=== PATIENT | male | born 1955 | race Caucasian/White ===

== ENCOUNTER → 2017-06-22 | Outpatient (CLI) | payer BC ==
--- NOTE | 2017-06-23 11:24 | PCVCIMAG ---
APPROVED REPORT Indications Bruit Stenosis Doppler Spectral Velocity Analysis PSV / EDVPSV / EDV ECA (R) 303 / 22 cm/sECA (L) 172 / 0 cm/s dICA (R) 79 / 21 cm/sdICA (L) 88 / 27 cm/s Tanner (R) 159 / 33 cm/smICA (L) 77 / 21 cm/s pICA (R) 206 / 44 cm/spICA (L) 96 / 25 cm/s Bulb (R) 89 / 16 cm/sBulb (L) 96 / 15 cm/s dCCA (R) 81 / 16 cm/sdCCA (L) 90 / 15 cm/s mCCA (R) 77 / 14 cm/smCCA (L) 114 / 19 cm/s Vert (R) 41 / 15 cm/sVert (L) 48 / 8 cm/s ICA/CCA 2.54ICA/CCA 1.07 Real Time B-Mode Imaging Vert. (R)AntegradeVert. (L)Antegrade Findings The right carotid bulb has moderately severe calcified plaque. The right proximal internal carotid artery shows 60-70% stenosis. The right common carotid artery shows no significant stenosis. The right external carotid artery shows >90% stenosis. The left carotid bulb has moderate calcified plaque. The left proximal internal carotid artery shows <40% stenosis. The left common carotid artery shows no significant stenosis. The left external carotid artery shows >50% stenosis. Conclusion 1. Right internal carotid artery stenosis (60-70%) 2. Left internal carotid artery stenosis (<40%) 3. Antegrade vertebral flow
--- NOTE | 2017-06-23 21:08 | PCVCIMAG ---
EXAM: RIGHT LOWER EXTREMITY ARTERIAL DUPLEX INDICATION: Peripheral Arterial Disease. Leg pain. FINDINGS: Right Leg: Satisfactory arterial waveforms in the common femoral and profunda femoral artery and in the superficial femoral artery and popliteal artery. Since October 2016 80% stenosis in the proximal posterior tibial artery within prior stent has developed. The anterior tibial artery remains patent. The peroneal artery is occluded. IMPRESSION: Interval development of 80% stenosis proximal right posterior tibial artery within prior stent. Peroneal artery remains occluded. LOC:OFFICE
== END | disposition home or self-care (01) ==
LOC: PCVCIMAG 13:21
PROVIDERS: ATTEND Nuclear Medicine Nuclear Cardiology
DX: I65.23 Occlusion and stenosis of bilateral carotid arteries (principal); I70.201 Unspecified atherosclerosis of native arteries of extremities, right leg; I77.1 Stricture of artery; I25.10 Atherosclerotic heart disease of native coronary artery without angina pectoris; E11.9 Type 2 diabetes mellitus without complications; Z79.4 Long term (current) use of insulin; Z95.828 Presence of other vascular implants and grafts
CPT/HCPCS: 93880; 93926

== ENCOUNTER → 2017-07-13 | Outpatient (CLI) | payer BC ==
[~2017-07-13] MED LIST: DIAZEPAM 10 MG TABLET. ONE; EPINEPHrine 1 MG/ML VIAL ONE; HEPARIN SODIUM 5,000 UNIT/ML VIAL for PCVC. ONE; IODIXANOL 270 MG/ML 100 ML VIAL. ONE; IV NORMAL SALINE 1000ML BAG 1,000 ML ONE; IV NORMAL SALINE 500ML BAG 500 ML ONE; LIDOCAINE 1% Multi-Dose 20 ML VIAL. ONE; MIDAZOLAM HCL/PF 2 MG/2 ML VIAL. ONE; PROTAMINE 50 MG/5 ML VIAL. IV ONE; VANCOMYCIN 1GM IVPB FOR OMNI 250 ML ONE; fentaNYL PF VIAL 100 MCG/2 ML VIAL ONE; hydrALAZINE 20 MG/ML VIAL. ONE
--- NOTE | 2017-07-13 15:45 | PCVCIMAG ---
APPROVED REPORT Study performed: 07/13/2017 12:27:23 EXAM: Comprehensive 2D, Doppler, and color-flow Echocardiogram Patient Location: Echo lab Status: routine BSA: 2.41 HR: 91 bpmBP: 114/71 mmHg Rhythm: RBBB Other Information Study Quality: Fair Technically limited study due to body habitus. Risk Factors: Cardiac Risk Factors: HTN, DM Indications CAD Cardiomyopathy Ischemic Cardiomyopathy, CABG 2D Dimensions LVEF(%): 26.33 (>50%) IVSd: 9.83 (7-11mm)LVOT Diam: 23.02 (18-24mm) LVDd: 58.15 mm PWd: 10.83 (7-11mm) LVDs: 50.93 (25-40mm) Left Atrium: 48.24 (27-40mm) Aortic Root: 35.86 mm LV Single Plane 4CH: 47.70 % LV Single Plane 2CH: 33.42 %Shaikh's LVEF: 40.56 % Volumes Left Atrial Volume (Systole) Single Plane 4CH: 126.66 mLSingle Plane 2CH: 106.63 mL LA ESV Index: 53.00 mL/m2 Aortic Valve AoV Peak Narinder.: 2.65 m/s AO Peak Gr.: 28.13 mmHgLVOT Max P.35 mmHg AO Mean Gr.: 15.33 mmHgLVOT Mean P.17 mmHg AO V2 Mean: 1.84 m/sLVOT Max V: 0.96 m/s AO V2 VTI: 62.58 cmLVOT Mean V: 0.70 m/s TRACY (VTI): 1.56 [id number] VTI: 23.40 cm TRACY Vmax: 1.50 cm2 SV (LVOT): 97.35 mL Mitral Valve E/A Ratio: 1.2 MV Decel. Time: 130.64 ms MV E Max Narinder.: 1.33 m/s MV A Narinder.: 1.12 m/s IVRT: 89.97 ms Pulmonary Valve PV Peak Narinder.: 0.94 m/sPV Peak Gr.: 3.53 mmHg Pulmonary Vein P Vein S: 0.55 m/sP Vein A: 0.34 m/s P Vein D: 0.77 m/sP Vein A Dur.: 131.5 msec P Vein S/D Ratio: 0.71 Tricuspid Valve TR Peak Narinder.: 2.53 m/s TR Peak Gr.: 25.58 mmHg Left Ventricle The left ventricle is normal size. There is normal LV segmental wall motion. There is normal left ventricular wall thickness. Left ventricular systolic function is mild to moderately decreased. LVEF is 40-45%. Grade II - pseudonormal filling dynamics. Right Ventricle The right ventricle is normal size. The right ventricular systolic function is normal. Atria Left atrium is moderately-severely dilated. Right atrium is mildly dilated. Aortic Valve The aortic valve is moderately calcified. The aortic valve is trileaflet. No aortic regurgitation is present. There is mild valvular aortic stenosis. Calculated aortic valve area is 1.4 cm2 with maximum pressure gradient of 28 mmHg and mean pressure gradient of 15 mmHg. Mitral Valve Moderate mitral annular calcification with moderately sclerotic leaflet appearance. Trace mitral regurgitation. No evidence of mitral valve stenosis. Tricuspid Valve The tricuspid valve is normal in structure. Mild tricuspid regurgitation with PAP of 33 mmHg. Pulmonic Valve The pulmonary valve is normal in structure. There is no pulmonic valvular regurgitation. Great Vessels The aortic root is normal in size. IVC is normal in size and collapses with >50% inspiration Pericardium There is no pericardial effusion. <Conclusion> The left ventricle is normal size. Left ventricular systolic function is mild to moderately decreased. Grade II - pseudonormal filling dynamics. Left atrium is moderately-severely dilated. There is mild valvular aortic stenosis. Trace mitral regurgitation. Mild tricuspid regurgitation with PAP of 33 mmHg.
--- NOTE | 2017-07-13 17:33 | PCVCINTER ---
EXAM: 1. AORTOGRAM AND RIGHT LOWER EXTREMITY RUNOFF ANGIOGRAM 2. BILATERAL RENAL ANGIOGRAPHY 3. RIGHT TIBIOPERONEAL TRUNK/POSTERIOR TIBIAL ARTERY ATHERECTOMY. 4. SECONDARY THROMBECTOMY RIGHT TIBIOPERONEAL TRUNK/POSTERIOR TIBIAL ARTERY. INDICATION: Peripheral arterial disease. Nonhealing ulcer right lower extremity. Hypertension. Renal atherosclerosis. PROCEDURE: Procedure and risks of angiography intervention is appropriate including limb loss stroke and were discussed with the patient's family and consent obtained. The patient's left groin was prepped abnormal sterile fashion. IV conscious sedation was used to procedure with appropriate monitoring from 8:30 through 10:00 AM. Ultrasound was used to interrogate the left groin and showed the left common femoral artery to be patent. A permanent spot film was obtained. Under ultrasound guidance access into the left common femoral artery was obtained and a 5 [place] sheath was placed. Through this a 5 [place] flush catheter was placed into the abdominal aorta at the level of the renal arteries and AP aortogram was performed. Catheter was positioned at the aortic bifurcation and both oblique views of the pelvis were obtained. Catheter was exchanged for a visceral catheter was placed into the right renal arteries and right renal angiograms obtained. Catheter was placed into the the left renal arteries and left renal angiograms were obtained. Catheter was advanced to the level of the right external iliac artery and right leg runoff angiography was obtained. Patient was given 4500 units of heparin. A 6 [place] crossover sheath was placed via the left groin to the level of the right common femoral artery. Atherectomy of the right tibioperoneal trunk/posterior tibial artery was performed with 0.9 mm [employer] laser atherectomy catheter in the standard fashion. Following atherectomy small areas of thrombus were observed and because of this secondary thrombectomy throughout the right tibioperoneal trunk/posterior tibial artery was carried out with mechanical suction thrombectomy catheter in the standard fashion. Minimal debris was removed. Following this angioplasty of the right tibioperoneal trunk/posterior tibial artery was carried out with a 3.0 x 40 mm sleek [employer] RN catheter. Follow-up angiogram was performed. Catheters and wires removed. Sheath was removed and hemostasis obtained using the FISH device. No immediate complications. FINDINGS: Aortogram: There is one right and one left renal artery. The infrarenal abdominal aorta is normal in caliber. Pelvis: The right and left common and external iliac arteries show good patency as do both internal iliac arteries. The right and left common femoral and profunda femoral arteries are patent. Right renal artery: Minimal plaque proximal vessel does not cause significant stenosis. Left renal artery: Minimal plaque proximal vessel does not cause significant stenosis. Right leg: Mild scattered plaque in the superficial femoral artery and popliteal artery without flow-limiting stenosis. Mild stenosis lower popliteal artery is noted. The anterior tibial artery show scattered plaque but maintaining satisfactory patency to runoff into a small dorsalis pedis. The peroneal artery shows complete occlusion throughout. Moderate stenosis of the right tibioperoneal trunk and 80% stenosis just beyond the origin of the posterior tibial artery. Right tibioperoneal trunk/posterior tibial artery: Following procedure as above satisfactory patency has been restored. IMPRESSION: Significant stenoses right tibioperoneal trunk and proximal posterior tibial artery were treated as above with satisfactory patency restored. Previous sites of intervention in the right anterior tibial artery maintaining satisfactory patency. follow up LOC:[place] [id number]
== END | disposition home or self-care (01) ==
LOC: PCVCINTER 07:37
PROVIDERS: ATTEND Nuclear Medicine Nuclear Cardiology
DX: I25.5 Ischemic cardiomyopathy (principal); I70.211 Atherosclerosis of native arteries of extremities with intermittent claudication, right leg; I10 Essential (primary) hypertension; I25.10 Atherosclerotic heart disease of native coronary artery without angina pectoris; E78.5 Hyperlipidemia, unspecified; E11.51 Type 2 diabetes mellitus with diabetic peripheral angiopathy without gangrene; I25.2 Old myocardial infarction; I70.1 Atherosclerosis of renal artery
CPT/HCPCS: 36252; 37186; 37229; 75710; 76937; 93306; 99152; 99153; C1725; C1751; C1757; C1769; C1894; J0171; J1644; J2250; J3010; J3370; J7030; J7040; Q9966; 75716; J0360

== ENCOUNTER → 2017-11-12 | Outpatient (CLI) | payer BC | END | disposition home or self-care (01) | LOC: PCVCIMAG 13:50 | DX: I65.23 Occlusion and stenosis of bilateral carotid arteries (principal); I73.9 Peripheral vascular disease, unspecified | CPT/HCPCS: 93880; 93926 ==

== ENCOUNTER → 2018-10-18 | Outpatient (CLI) | payer BC ==
--- NOTE | 2018-10-18 14:20 | PCVCIMAG ---
EXAM: BILATERAL CAROTID DUPLEX INDICATION: Carotid Occlusive Disease. FINDINGS: Doppler Measurements (centimeters per second): RIGHT: Peak CCA-84, Peak ECA-402, Diastolic ICA-48, Peak ICA-241, ICA/CCA Ratio-2.9. LEFT: Peak CCA-102, Peak ECA-120, Diastolic ICA-27, Peak ICA-116, ICA/CCA Ratio-1.1. RIGHT CAROTID: The carotid bulb has severe plaque. The proximal internal carotid artery shows 70% stenosis. The common carotid artery shows no significant stenosis. The external carotid artery shows 90% stenosis. LEFT CAROTID: The carotid bulb has moderate plaque. The proximal internal carotid artery shows <40% stenosis. The common carotid artery shows no significant stenosis. The external carotid artery shows no significant stenosis. Antegrade flow in both vertebral arteries. IMPRESSION: 70% stenosis of the right internal carotid artery with severe plaque. <40% stenosis of the left internal carotid artery with moderate plaque. No change since November 2017. LOC:OFFICE
--- NOTE | 2018-10-18 16:47 | PCVCIMAG ---
EXAM: ULTRASOUND OF THE THYROID INDICATION: Thyroid nodules. FINDINGS: The right thyroid lobe measures 2.0 x 2.6 x 5.0 cm. The left thyroid lobe measures 1.8 x 2.0 x 4.7 cm. 0.9 x 1.1 x 1.3 cm solid nodule in the mid right thyroid lobe which contains several small cystic spaces. No additional nodules are seen. Satisfactory echotexture. IMPRESSION: 1.3 cm predominantly solid nodule mid right thyroid lobe. Further evaluation into may be of value if this is a new finding. LOC:OFFICE
--- NOTE | 2018-10-18 16:55 | PCVCIMAG ---
EXAM: RIGHT LOWER EXTREMITY ARTERIAL DUPLEX INDICATION: Peripheral Arterial Disease. Leg pain. FINDINGS: Right Leg: Common femoral and profunda femoral arteries are patent. Superficial femoral artery and popliteal artery are patent. Anterior tibial artery is patent. Peroneal artery is occluded. Tibioperoneal trunk is patent. 90% restenosis at site of prior intervention proximal posterior tibial artery. IMPRESSION: 90% restenosis at site of prior intervention in the proximal right posterior tibial artery. Previous sites of intervention right anterior tibial artery remain patent. LOC:OFFICE
== END | disposition home or self-care (01) ==
LOC: PCVCIMAG 12:54
PROVIDERS: ATTEND Nuclear Medicine Nuclear Cardiology
DX: I65.23 Occlusion and stenosis of bilateral carotid arteries (principal); E04.1 Nontoxic single thyroid nodule; I73.9 Peripheral vascular disease, unspecified; I77.9 Disorder of arteries and arterioles, unspecified
CPT/HCPCS: 76536; 93880; 93926

== ENCOUNTER → 2018-10-30 | Outpatient (CLI) | payer BC ==
[~2018-10-30] MED LIST changes: +ASPIRIN 325 MG TABLET ONE; +CLOPIDOGREL BISULFATE 75 MG TABLET ONE; -EPINEPHrine 1 MG/ML VIAL ONE; +EPTIFIBATIDE BOLUS 2,000 MCG/ML 10ML VIAL. IV ONE; -HEPARIN SODIUM 5,000 UNIT/ML VIAL for PCVC. ONE; +HEPARIN for SUB-Q USE 5,000 UNIT/ML VIAL. SQ ONE; -IV NORMAL SALINE 500ML BAG 500 ML ONE; -LIDOCAINE 1% Multi-Dose 20 ML VIAL. ONE; +LIDOCAINE 1%/EPI 1:100,000 20 ML VIAL. ONE; -PROTAMINE 50 MG/5 ML VIAL. IV ONE; -VANCOMYCIN 1GM IVPB FOR OMNI 250 ML ONE
--- NOTE | 2018-10-30 21:56 | PCVCINTER ---
EXAM: 1. AORTOGRAM AND RIGHT LOWER EXTREMITY RUNOFF ANGIOGRAM 2. BILATERAL RENAL ANGIOGRAPHY 3. RIGHT TIBIOPERONEAL TRUNK/PROXIMAL POSTERIOR TIBIAL ARTERY ATHERECTOMY AND DRUG-ELUTING STENT PLACEMENT. 4. SECONDARY THROMBECTOMY RIGHT TIBIOPERONEAL TRUNK/POSTERIOR TIBIAL ARTERY. INDICATION: Peripheral arterial disease. Leg pain. Previous left leg amputation. Hypertension. Renal atherosclerosis. No prior catheter based angiographic study is available. A full diagnostic angiogram study is performed today and the decision to intervene is based on this diagnostic study. PROCEDURE: Procedure and risks of angiography intervention is appropriate including limb loss stroke and were discussed with the patient's family and consent obtained. The patient's left groin was prepped in the normal sterile fashion. IV conscious sedation was used throughout procedure with appropriate monitoring from 10:00 AM through 11:30 AM. Ultrasound was used to interrogate the left groin and showed the left common femoral artery to be patent. A permanent spot film was obtained. Under ultrasound guidance access into the left common femoral artery was obtained and a 5 Malaysian sheath was placed. Through this a 5 [place] flush catheter was placed into the abdominal aorta at the level of the renal arteries and AP aortogram was performed. Catheter was positioned at the aortic bifurcation and both oblique views of the pelvis were obtained. Catheter was positioned into the left external iliac artery and left leg runoff angiography was performed. Catheter was exchanged for a visceral catheter was placed into the right renal arteries and right renal angiograms obtained. Catheter was placed into the the left renal arteries and left renal angiograms were obtained. Catheter was advanced to the level of the right external iliac artery and right leg runoff angiography was obtained. Patient was given 4500 units of heparin. A 6 Malaysian crossover sheath was placed via the left groin to the level of the right common femoral artery. Atherectomy of the right tibioperoneal trunk/proximal peroneal artery was performed with 0.9 mm [employer] laser atherectomy catheter in the standard fashion. Following atherectomy small areas of thrombus were observed and because of this secondary thrombectomy throughout the right tibioperoneal trunk/posterior tibial artery was carried out with mechanical suction thrombectomy catheter in the standard fashion. Minimal debris was removed. Stent placement across the areas of high-grade stenosis in the right tibioperoneal trunk/proximal posterior tibial artery was carried out with a 3.0 x 33 mm Cordis EluNIR stent with subsequent dilatation to 3.0 mm. Follow-up angiogram was performed. Catheters and wires removed. Sheath was removed and hemostasis obtained using the FISH device. No immediate complications. FINDINGS: Aortogram: There is one right and one left renal artery. Minimal plaque infrarenal abdominal aorta. Pelvis: The right and left common and external iliac arteries are patent. Both internal iliac arteries are patent. The right and left common femoral and profunda femoral arteries are patent. Right renal artery: Minimal plaque proximal vessel does not cause significant stenosis. Left renal artery: Minimal plaque proximal vessel does not cause significant stenosis. Right leg: Scattered plaque superficial femoral artery and popliteal artery without significant stenosis. Previous site of intervention distal popliteal artery maintaining good patency. The peroneal artery is occluded throughout its length and this is unchanged. Moderate stenosis tibioperoneal trunk and high-grade stenosis at the junction of the tibioperoneal trunk/proximal posterior tibial artery. Mid and distal posterior tibial artery maintaining good patency into moderate-sized plantar arteries. Mild stenosis proximal anterior tibial artery with anterior tibial artery being otherwise patent into a moderate-sized dorsalis pedis. Right tibioperoneal trunk/proximal posterior tibial artery: Following procedure as above vessel shows good patency throughout. IMPRESSION: Moderate/severe in-stent restenosis tibioperoneal trunk/proximal posterior tibial artery was treated as above with good patency restored. LOC:OFFICE
== END | disposition home or self-care (01) ==
LOC: PCVCINTER 08:07
PROVIDERS: ATTEND Nuclear Medicine Nuclear Cardiology
DX: I70.291 Other atherosclerosis of native arteries of extremities, right leg (principal); I70.1 Atherosclerosis of renal artery; I70.0 Atherosclerosis of aorta; I10 Essential (primary) hypertension; I25.5 Ischemic cardiomyopathy; I25.10 Atherosclerotic heart disease of native coronary artery without angina pectoris; E78.00 Pure hypercholesterolemia, unspecified; Q21.1 Atrial septal defect; Z95.1 Presence of aortocoronary bypass graft; Z89.612 Acquired absence of left leg above knee; Z82.49 Family history of ischemic heart disease and other diseases of the circulatory system; F17.210 Nicotine dependence, cigarettes, uncomplicated; Z79.899 Other long term (current) drug therapy; E11.9 Type 2 diabetes mellitus without complications; E04.1 Nontoxic single thyroid nodule; Z79.84 Long term (current) use of oral hypoglycemic drugs
CPT/HCPCS: 36252; 37186; 37231; 75710; 76937; 99152; 99153; C1725; C1751; C1757; C1760; C1769; C1876; C1885; C1887; C1894; J0690; J1327; J1644; J2250; J3010; J3490; J7030; Q9967; 75716; J0360

== ENCOUNTER → 2019-01-28 | Outpatient (CLI) | payer BC ==
--- NOTE | 2019-01-28 08:48 | PCVCIMAG ---
EXAM: RIGHT LOWER EXTREMITY ARTERIAL DUPLEX INDICATION: Peripheral Arterial Disease. Leg pain. FINDINGS: Right Leg: Common femoral and profunda femoral arteries are patent. Superficial femoral artery and popliteal artery are patent. Previous tibioperoneal trunk stent is widely patent. Posterior tibial artery is patent as is the anterior tibial artery. Peroneal artery is occluded. IMPRESSION: Previous right tibioperoneal trunk stent maintaining good patency. Unchanged occlusion of the right peroneal artery. LOC:[id number]
== END | disposition home or self-care (01) ==
LOC: PCVCIMAG 08:25
PROVIDERS: ATTEND Nuclear Medicine Nuclear Cardiology
DX: I73.9 Peripheral vascular disease, unspecified (principal); E78.00 Pure hypercholesterolemia, unspecified
CPT/HCPCS: 93926

== ENCOUNTER → 2019-04-11 | Outpatient (CLI) | payer BC, MEDICARE ==
--- NOTE | 2019-04-11 10:52 | PCVCIMAG ---
APPROVED REPORT Study performed: 04/11/2019 08:56:02 EXAM: Comprehensive 2D, Doppler, and color-flow Echocardiogram Patient Location: Echo lab Status: routine BSA: 2.39 HR: 77 bpmBP: 106/68 mmHg Rhythm: NSR Other Information Study Quality: Adequate Indications CAD aortic stenosis, ischemic cardiomyopathy 2D Dimensions IVSd: 13.21 (7-11mm)LVOT Diam: 23.25 (18-24mm) LVDd: 58.19 mm PWd: 8.89 (7-11mm)Ascending Ao: 37.54 (22-36mm) LVDs: 50.48 (25-40mm) Left Atrium: 50.55 (27-40mm) Aortic Root: 38.03 mm Volumes Left Atrial Volume (Systole) Single Plane 4CH: 110.61 mLSingle Plane 2CH: 115.08 mL LA ESV Index: 48.00 mL/m2 Aortic Valve AoV Peak Narinder.: 3.06 m/s AO Peak Gr.: 37.53 mmHgLVOT Max P.87 mmHg AO Mean Gr.: 18.32 mmHgLVOT Mean P.90 mmHg AO V2 Mean: 1.95 m/sLVOT Max V: 0.90 m/s AO V2 VTI: 68.06 cmLVOT Mean V: 0.66 m/s TRACY (VTI): 1.31 [id number] V1 VTI: 20.94 cm TRACY Vmax: 1.25 cm2 SV (LVOT): 88.82 mL Mitral Valve E/A Ratio: 0.7 MV Decel. Time: 263.84 ms MV E Max Narinder.: 0.93 m/s MV A Narinder.: 1.25 m/s IVRT: 107.27 ms Pulmonary Valve PV Peak Narinder.: 0.95 m/sPV Peak Gr.: 3.61 mmHg Pulmonary Vein P Vein S: 0.42 m/sP Vein A: 0.25 m/s P Vein D: 0.51 m/sP Vein A Dur.: 93.4 msec P Vein S/D Ratio: 0.82 Tricuspid Valve TR Peak Narinder.: 2.46 m/s TR Peak Gr.: 24.16 mmHg TV Vmax: 0.65 m/s Left Ventricle The left ventricle is normal size. There is hypokinesis of the inferior segments. Mild septal left ventricular hypertrophy. Left ventricular systolic function is mild to moderately decreased. LVEF is 40-45%. Grade I - abnormal relaxation pattern. Right Ventricle The right ventricle is normal size. The right ventricular systolic function is normal. Atria Left atrium is dilated. The right atrium size is normal. Aortic Valve Moderate aortic valve sclerosis. No aortic regurgitation is present. There is mild to moderate valvular aortic stenosis. Maximum pressure gradient of 38 mmHg and mean pressure gradient of 18 mmHg. Mitral Valve Moderate posterior mitral annular calcification. There is no mitral valve regurgitation noted. No evidence of mitral valve stenosis. Tricuspid Valve The tricuspid valve is normal in structure. Mild tricuspid regurgitation with PAP of 31 mmHg. Pulmonic Valve The pulmonary valve is normal in structure. Mild pulmonic regurgitation. Great Vessels The aortic root is normal in size. IVC is normal in size and collapses >50% with inspiration. Pericardium There is no pericardial effusion. There is no pleural effusion. <Conclusion> The left ventricle is normal size. Left ventricular systolic function is mild to moderately decreased. LVEF is 40-45%. Grade I - abnormal relaxation pattern. The right ventricle is normal size. Left atrium is dilated. The right atrium size is normal. Moderate aortic valve sclerosis. There is mild to moderate valvular aortic stenosis. Moderate posterior mitral annular calcification. Mild tricuspid regurgitation with PAP of 31 mmHg.
== END | disposition home or self-care (01) ==
LOC: PCVCIMAG 08:40
PROVIDERS: ATTEND Internal Medicine Cardiovascular Disease
DX: I08.3 Combined rheumatic disorders of mitral, aortic and tricuspid valves (principal); I25.10 Atherosclerotic heart disease of native coronary artery without angina pectoris; I25.5 Ischemic cardiomyopathy
CPT/HCPCS: 93306

== ENCOUNTER → 2019-08-08 | Outpatient (CLI) | payer BC, MEDICARE ==
--- NOTE | 2019-08-08 12:15 | PCVCIMAG ---
EXAM: BILATERAL CAROTID DUPLEX INDICATION: Carotid Occlusive Disease. FINDINGS: Doppler Measurements (centimeters per second): RIGHT: Peak CCA-79, Peak ECA-264, Diastolic ICA-44, Peak ICA-248, ICA/CCA Ratio-3.1. LEFT: Peak CCA-108, Peak ECA-169, Diastolic ICA-35, Peak ICA-122, ICA/CCA Ratio-1.1. RIGHT CAROTID: The carotid bulb has severe plaque. The proximal internal carotid artery shows 70% stenosis. The common carotid artery shows no significant stenosis. The external carotid artery shows 70% stenosis. LEFT CAROTID: The carotid bulb has moderate plaque. The proximal internal carotid artery shows <40% stenosis. The common carotid artery shows no significant stenosis. The external carotid artery shows 60% stenosis. Antegrade flow in both vertebral arteries. IMPRESSION: 70% stenosis of the right internal carotid artery with severe plaque. <40% stenosis of the left internal carotid artery with moderate plaque. No change since October 2018. LOC:[id number]
--- NOTE | 2019-08-08 12:18 | PCVCIMAG ---
EXAM: RIGHT LOWER EXTREMITY ARTERIAL DUPLEX INDICATION: Peripheral Arterial Disease. Leg pain. FINDINGS: Right Leg: Common femoral and profunda femoral arteries are patent. Superficial femoral artery and popliteal artery are patent. Previous tibioperoneal trunk stent maintaining good patency. Unchanged occlusion peroneal artery. The anterior tibial and posterior tibial arteries show adequate patency. IMPRESSION: Previous right tibioperoneal trunk stent maintaining satisfactory patency. Unchanged occlusion right peroneal artery. LOC:[id number]
== END | disposition home or self-care (01) ==
LOC: PCVCIMAG 09:22
PROVIDERS: ATTEND Nuclear Medicine Nuclear Cardiology
DX: I65.23 Occlusion and stenosis of bilateral carotid arteries (principal); E11.51 Type 2 diabetes mellitus with diabetic peripheral angiopathy without gangrene; F17.200 Nicotine dependence, unspecified, uncomplicated; Z86.73 Personal history of transient ischemic attack (TIA), and cerebral infarction without residual deficits
CPT/HCPCS: 93880; 93926

== ENCOUNTER → 2019-08-12 | Outpatient (CLI) | payer BC, MEDICARE | END | disposition home or self-care (01) | LOC: PCVCCLINIC 15:40 | PROVIDERS: ATTEND Nuclear Medicine Nuclear Cardiology | DX: I73.9 Peripheral vascular disease, unspecified (principal); I25.10 Atherosclerotic heart disease of native coronary artery without angina pectoris; I10 Essential (primary) hypertension; I25.5 Ischemic cardiomyopathy; Q21.1 Atrial septal defect; I35.0 Nonrheumatic aortic (valve) stenosis; E78.00 Pure hypercholesterolemia, unspecified; E11.9 Type 2 diabetes mellitus without complications; F17.210 Nicotine dependence, cigarettes, uncomplicated | CPT/HCPCS: G0463 ==